=== PATIENT | male | born 1950 | race Caucasian/White ===

== ENCOUNTER 2023-05-13 22:09 | Emergency (ER) | payer MEDICARE, OTHER, SELFPAY ==
[2023-05-13 22:43] VITALS: BMI 26.6
[2023-05-13 22:47] VITALS: BP 124/72
--- NOTE | 2023-05-13 23:00 | ED.GENMED ---
History of Present Illness
<KIMBERLY Gaines - Last Filed: 05/14/23 04:26>
General
Chief Complaint: Swelling
Source: patient
Exam Limitations: none
Time Seen by Provider: 05/13/23 23:00
Nursing documentation reviewed up to this point in time: agreed with
Travel History
Have you had any contact with someone who has COVID-19?: No
Do you have any symptoms of coronavirus? Fever > 100 degrees, chills, cough, shortness of breath, sore throat, loss of taste or smell, muscle aches, or headache?: No
History of Present Illness
History of Present Illness:
This is a 72 YOM with PMHx of cholangiocarcinoma with liver and lung mets, HLD, and DVT in Mar 2023 presenting with fever and R leg edema. Pt started with R lower leg edema, skin redness, and R calf that was 'hard' to the touch. He called his
oncologist when he began with fever later today. Pt mentioned TMax of 101.2F at home. Oncologist recommended ED eval. Pt did not take any antipyretics today. Pt denied QUINN, dizziness, ear/eye/nose/throat pain, diff swallowing, chest pain, SOB, cough,
N/V/D/C, MSK weakness, diff ambulation, sensory deficits. Pt denied any LE pain. PE significant for intact PMS in R and L lower extremities. Skin on R medial calf with mild erythema, otherwise W/D/I and skin tone normal for ethnicity. Lower legs
supple to palpation B/L. Intact ROM in LE B/L. Grade 2 pitting tibal and medial malleolus edema LLE. Grade 3 tibal and medial malleolus pitting edema RLE. Basilar crackles heard B/L on lung auscultation.
Past History
<KIMBERLY Gaines - Last Filed: 05/14/23 04:26>
Past History
ED Past Medical History: Hypercholesterolemia
ED Past Surgical History: Orthopedic
Social History
Tobacco: Non-smoker
Alcohol: Occasional
Personal:
Living: with family
Employment: Employed (tools and parts attendant, partially retired)
Review of Systems
<KIMBERLY Gaines - Last Filed: 05/14/23 04:26>
Review of Systems
Allergies reviewed?: Yes
All Other Systems: ROS reviewed and negative except as documented in HPI and ROS
Constitutional: Reports fever and chills
EENT: Reports no symptoms
Respiratory: Reports no symptoms
Cardiac: Reports no symptoms
ABD/GI: Reports no symptoms
: Reports no symptoms
Musculoskeletal: Reports edema
Skin: Reports other (erythema)
Neurological: Reports no symptoms
Hematologic/Lymphatic: Reports no symptoms
Psychiatric: Reports no symptoms
Phy Exam
<KIMBERLY Gaines - Last Filed: 05/14/23 04:26>
General Physical Exam
General Presentation: well appearing
General age: appears stated age
General Skin: warm, dry and other (mild erythema on R medial calf)
General Habitus: normal
General Mental: alert
General Hydration: appears well hydrated
ENT Exam
ENT Exam: EOMI and neck supple
Eye Exam
Eye Exam: PERRL and EOMI
Cardiovascular Exam
Cardiovascular Exam: regular rate/rhythm
Pulmonary Exam
Pulmonary Exam: no respiratory distress and no cough
Breath Sounds: Crackles: left lower and right lower
Gastrointestinal Exam
Gastrointestinal Exam: normal bowel sounds, non tender, soft, no pulsatile mass, non distended and no masses
Neurological Exam
Neurological Exam: alert, oriented x3, no motor deficits, no sensory deficits, speech normal and normal gait
Musculoskeletal Exam
Musculoskeletal Exam: full ROM (LE B/L) and neuro vasc intact
Skin Exam
Skin Exam: erythema (R medial calf)
Psychiatric Exam
Psychiatric Exam: normal mood/affect
Scores
<KIMBERLY Gaines - Last Filed: 05/14/23 04:26>
Heart Failure Risk
Heart Failure Risk Score: Not Applicable
Course
<KIMBERLY Gaines - Last Filed: 05/14/23 04:26>
Orders/Labs/Results
Orders:
Orders
05/13/23 23:19
Vital Signs- Treatment ONCE
Frequency: Once
05/13/23 23:41
CMP [Comprehensive Metabolic Panel] Urgent
Complete Blood Count/With Diff Urgent
Lactic Acid Q4H
Comment: CANCEL 2nd LACTIC ACID IF 1st LACTIC ACID IS LESS THAN 2
Blood Culture Q30M
ROBIN Source: Blood/Venous
Specimen Description:
05/14/23 00:24
Blood Culture Q30M
ROBIN Source: Blood/Venous
Specimen Description:
05/14/23 00:33
Legs, Bilateral US [US Periph Venous LOWER Ext Edmund] Urgent
Comment:
Reason For Exam: bilateral leg swelling
05/14/23 00:35
CR Chest - 2 Views Urgent
Comment:
Reason For Exam: cough, fever
05/14/23 02:30
COVID-19 Antigen Urgent
Source: Nasal Swab
Influenza A+B Rapid Molecular Urgent
ROBIN Source: Nasal Swab
Specimen Description:
05/14/23 03:17
Cephalexin Monohydrate [Keflex] 500 mg PO NOW STA
Abnormal Lab Results
05/13/23 05/14/23
23:41 02:30
WBC 4.2 L 10^3/uL
(4.8-10.8)
RBC 2.74 L 10^6/uL
(4.70-6.10)
Hgb 9.7 L g/dL
(13.0-18.0)
Hct 27.4 L %
(39.0-52.0)
MCV 100.0 H fL
(80.0-94.0)
MCH 35.4 H pg
(27.0-31.0)
RDW 15.4 H %
(11.5-14.5)
Absolute Lymphs (auto) 0.2 L 10^3/uL
(1.2-3.4)
Neutrophils % 88.8 H %
(42.2-75.2)
Lymphocytes % 5.0 L %
(20.5-51.1)
Sodium 132 L mmol/L
(135-145)
Carbon Dioxide 21 L mmol/L
(22-30)
Glucose 126 H mg/dl
(70-99)
Total Protein 5.8 L g/dl
(6.3-8.2)
Albumin 3.3 L g/dl
(3.5-5.0)
SARS-CoV-2 Antigen Positive A
(Negative)
05/13/23 23:41
05/13/23 23:41
Vital Signs
Initial and Last Documented VS:
Initial Vital Signs
Temp Pulse Resp Pulse Ox
99.6 F 70 16 100
05/13/23 22:11 05/13/23 22:11 05/13/23 22:11 05/13/23 22:11
Last Documented Vital Signs
Temp Pulse Resp BP Pulse Ox
98.5 F 56 17 111/68 96
05/14/23 03:57 05/14/23 03:57 05/14/23 03:57 05/14/23 03:57 05/14/23 03:57
Bethanylt;Álvaro Eckert, DO - Last Filed: 05/14/23 03:53>
Orders/Labs/Results
Orders:
Orders
05/13/23 23:19
Vital Signs- Treatment ONCE
Frequency: Once
05/13/23 23:41
CMP [Comprehensive Metabolic Panel] Urgent
Complete Blood Count/With Diff Urgent
Lactic Acid Q4H
Comment: CANCEL 2nd LACTIC ACID IF 1st LACTIC ACID IS LESS THAN 2
Blood Culture Q30M
ROBIN Source: Blood/Venous
Specimen Description:
05/14/23 00:24
Blood Culture Q30M
ROBIN Source: Blood/Venous
Specimen Description:
05/14/23 00:33
Legs, Bilateral US [US Periph Venous LOWER Ext Edmund] Urgent
Comment:
Reason For Exam: bilateral leg swelling
05/14/23 00:35
CR Chest - 2 Views Urgent
Comment:
Reason For Exam: cough, fever
05/14/23 02:30
COVID-19 Antigen Urgent
Source: Nasal Swab
Influenza A+B Rapid Molecular Urgent
ROBIN Source: Nasal Swab
Specimen Description:
05/14/23 03:17
Cephalexin Monohydrate [Keflex] 500 mg PO NOW STA
Abnormal Lab Results
05/13/23 05/14/23
23:41 02:30
WBC 4.2 L 10^3/uL
(4.8-10.8)
RBC 2.74 L 10^6/uL
(4.70-6.10)
Hgb 9.7 L g/dL
(13.0-18.0)
Hct 27.4 L %
(39.0-52.0)
MCV 100.0 H fL
(80.0-94.0)
MCH 35.4 H pg
(27.0-31.0)
RDW 15.4 H %
(11.5-14.5)
Absolute Lymphs (auto) 0.2 L 10^3/uL
(1.2-3.4)
Neutrophils % 88.8 H %
(42.2-75.2)
Lymphocytes % 5.0 L %
(20.5-51.1)
Sodium 132 L mmol/L
(135-145)
Carbon Dioxide 21 L mmol/L
(22-30)
Glucose 126 H mg/dl
(70-99)
Total Protein 5.8 L g/dl
(6.3-8.2)
Albumin 3.3 L g/dl
(3.5-5.0)
SARS-CoV-2 Antigen Positive A
(Negative)
05/13/23 23:41
05/13/23 23:41
Vital Signs
Initial and Last Documented VS:
Initial Vital Signs
Temp Pulse Resp Pulse Ox
99.6 F 70 16 100
05/13/23 22:11 05/13/23 22:11 05/13/23 22:11 05/13/23 22:11
Last Documented Vital Signs
Temp Pulse Resp BP Pulse Ox
98.5 F 56 17 111/68 96
05/14/23 03:57 05/14/23 03:57 05/14/23 03:57 05/14/23 03:57 05/14/23 03:57
<KIMBERLY Gaines - Last Filed: 05/14/23 04:26>
MDM/Problems Addressed
Differential Diagnosis Includes:
Cellulitis, DVT, sepsis
PNA, COVID, Influenza A/B
MDM/Problems Addressed:
72 YOM presenting with RLE edema, erythema
Chronic conditions affecting care:
Cholangiocarcinoma
Acute Exacerbation and/or Progression of Chronic Illness:
Cholangiocarcinoma
<KIMBERLY Gaines - Last Filed: 05/14/23 04:26>
*Pulse Oximetry
Patient hypoxic: no
*Critical Care Note
Total Time (30-74mins, 75-104mins- exclusive of procedures): Not Applicable
<Álvaro Eckert DO - Last Filed: 05/14/23 03:53>
*Radiology
Radiology exam reviewed: preliminary read by ED provider (Chest x-ray no acute findings) and radiology read reviewed (Ultrasound shows bilateral nonocclusive DVTs in lower extremities, improved from prior)
*EKG
Interpreted by ED Provider?: NA
*[employer] Interpretation
Rate: [employer]- N/A
*Critical Care Note
Total Time (30-74mins, 75-104mins- exclusive of procedures): Not Applicable
<Álvaro Eckert DO - Last Filed: 05/14/23 03:53>
Patient Management
Social determinants of health affecting care: Strong social support
Escalation/DeEscalation of care consider admission/obs:
Admit not indicated
ED Attending Note
<KIMBERLY Gaines - Last Filed: 05/14/23 04:26>
-
Portions of this chart may have been created with voice recognition software.� Occasional wrong word or��sound alike� substitutions may have occurred due to the inherent limitations of voice recognition software.
<Álvaro Eckert DO - Last Filed: 05/14/23 03:53>
ED Attending Note
Patient seen and examined by attending physician: Yes
I performed the substantive portion of visit, reviewed & personally made and approve the management plan that is documented in note by myself or CORKY.: Yes
I performed a history and physical exam of patient and discussed management with resident, I reviewed resident's note and agree with documented findings and plan of care.: Yes
ED Attending Note:
I have reviewed and agree with history and treatment plan by Shazia Rao. My exam revealed 72-year-old male with mild erythema bilateral lower extremities, lungs clear, temperature 99.6. Chronic edema and DVT improved from prior ultrasound.
Chest x-ray no acute finding with COVID likely responsible for his fever and chills. Stable for discharge.
Discharge Plan
Departure
Patient Disposition: Home (Routine Discharge)
Date of Disposition: 05/14/23
Time of Disposition: 03:23
Patient with high blood pressure during this ER visit?: Yes
Condition: Good
Covid-19: Confirmed COVID-19
Discharge Problem:
COVID-19, Cellulitis of right lower extremity, DVT (deep venous thrombosis)
Instructions: Deep vein thrombosis (blood clot in the legs), COVID-19 (DC), Cellulitis (Skin Infection), Adult ED
Prescriptions:
New
cephalexin 500 mg capsule
500 mg PO BID 7 Days Qty: 14 0RF
No Action
atorvastatin [Lipitor] 40 mg Tablet
40 mg PO HS
lisinopril 20 mg Tablet
20 mg PO DAILY Qty: 90 0RF
Sutab 1.479-0.188- 0.225 gram Tablet
0 tab PO PER PKG DIR
Eliquis 5 mg tablet
5 mg PO BID Qty: 60 0RF
Rx Instructions:
Take 10mg twice a day for one week, then take 5mg twice a day after the first week.
Referrals:
Álvaro Sandoval MD [Family Provider] -
Interventions
Interventions:
*Risk Screen - Suicide Last Done: 05/13/23 22:11
*General Assessment Last Done: 05/13/23 22:11
*Neglect/Abuse Screening Last Done: 05/13/23 22:11
ED- Fall Risk Assessment Last Done: 05/14/23 03:57
*ED COVID-19 Vaccine History Last Done: 05/13/23 22:43
*Nursing Disposition Last Done: 05/14/23 03:57
ED- Cardiac Assessment Last Done: 05/13/23 23:32
ED- Pulmonary Assessment Last Done: 05/13/23 23:32
ED-Skin Assessment Last Done: 05/13/23 23:30
Discharge Date and Time
Discharge Date/Time: 05/14/23 03:58
[2023-05-13 23:53] LABS: % Basophils 0.2 % (0-2); Nucleated Red Blood Cells % 0 % (-); Red Blood Cell Count 2.74 10^6/uL (4.70-6.10)
[2023-05-13 23:58] LABS: % Immature Granulocytes 0.5 % (0-0.5); % Monocytes 4.5 % (1.7-9.3); % Neutrophils 88.8 % (42.2-75.2); Absolute Lymphocytes 0.2 10^3/uL (1.2-3.4); Absolute Monocytes 0.2 10^3/uL (0.1-0.6); Absolute Neutrophils 3.7 10^3/uL (1.4-6.5); Hematocrit 27.4 % (39.0-52.0); Hemoglobin 9.7 g/dL (13.0-18.0); Mean Corp Hgb Conc. 35.4 g/dL (33.0-37.0); Mean Corpuscular Hgb 35.4 pg (27.0-31.0); Mean Platelet Volume 9.4 fL (7.4-10.4); Platelet Count 224 10^3/uL (130-400); Red Cell Dist. Width 15.4 % (11.5-14.5); White Blood Cell Count 4.2 10^3/uL (4.8-10.8)
[2023-05-14 00:05] LABS: Lactic Acid 1.1 mmol/L (0.7-2.0)
[2023-05-14 00:07] LABS: ALT (SGPT) 41 U/L (0-50); AST (SGOT) 47 U/L (17-59); Albumin 3.3 g/dl (3.5-5.0); Alkaline Phosphatase 119 U/L (38-126); Blood Urea Nitrogen 19 mg/dl (9-20); Calcium 8.6 mg/dl (8.4-10.2); Carbon Dioxide 21 mmol/L (22-30); Chloride 103 mmol/L (98-107); Estimated Creatinine Clearance 76 ml/min; Glucose 126 mg/dl (70-99); Potassium 4.2 mmol/L (3.5-5.1); Sodium 132 mmol/L (135-145); Total Bilirubin 0.9 mg/dl (0.2-1.3); Total Protein 5.8 g/dl (6.3-8.2); eGFR > 60.00
[2023-05-14 00:21] VITALS: BP 108/59
[2023-05-14 03:03] LABS: COVID-19 Antigen Positive (Negative)
[2023-05-14] MEDS: KEFLEX 500 MG PO (03:55)
[2023-05-14 03:57] VITALS: BP 111/68
== END 2023-05-14 03:58 | disposition home or self-care (01) ==
LOC: EMR 22:09
PROVIDERS: EMERGENCY PHYSICIAN Emergency Medicine; FAMILY PHYSICIAN Family Medicine
DX: U07.1 COVID-19 (principal); L03.115 Cellulitis of right lower limb; R50.9 Fever, unspecified; I82.4Z3 Acute embolism and thrombosis of unspecified deep veins of distal lower extremity, bilateral; R60.0 Localized edema; Z11.52 Encounter for screening for COVID-19; C22.1 Intrahepatic bile duct carcinoma; C78.00 Secondary malignant neoplasm of unspecified lung; C78.7 Secondary malignant neoplasm of liver and intrahepatic bile duct; E78.00 Pure hypercholesterolemia, unspecified; Z86.718 Personal history of other venous thrombosis and embolism; Z91.013 Allergy to seafood
CPT/HCPCS: 99284; 71046; 80053; 83605; 85025; 87040; 87502; 87811; 93970

== ENCOUNTER 2023-11-23 18:58 | Inpatient (IN) | payer MEDICARE, OTHER, SELFPAY ==
[2023-11-23 16:16] VITALS: BP 150/77
[2023-11-23 16:45] LABS: % Basophils 0.4 % (0-2); % Eosinophils 3.2 % (0-6); % Immature Granulocytes 0.3 % (0-0.5); % Lymphocytes 14.8 % (20.5-51.1); % Monocytes 7.3 % (1.7-9.3); Absolute Eosinophils 0.3 10^3/uL (0-0.7); Absolute Lymphocytes 1.4 10^3/uL (1.2-3.4); Absolute Monocytes 0.7 10^3/uL (0.1-0.6); Hematocrit 34.2 % (39.0-52.0); Hemoglobin 12.2 g/dL (13.0-18.0); Mean Corp Hgb Conc. 35.7 g/dL (33.0-37.0); Mean Corpuscular Hgb 31.9 pg (27.0-31.0); Mean Corpuscular Volume 89.5 fL (80.0-94.0); Nucleated Red Blood Cells % 0 % (-); Platelet Count 193 10^3/uL (130-400); Red Blood Cell Count 3.82 10^6/uL (4.70-6.10); Red Cell Dist. Width 13.2 % (11.5-14.5); White Blood Cell Count 9.4 10^3/uL (4.8-10.8)
[2023-11-23 17:25] LABS: ALT (SGPT) 33 U/L (0-50); AST (SGOT) 30 U/L (17-59); Albumin 4.1 g/dl (3.5-5.0); Alkaline Phosphatase 152 U/L (38-126); Blood Urea Nitrogen 41 mg/dl (9-20); Calcium 9.5 mg/dl (8.4-10.2); Carbon Dioxide 15 mmol/L (22-30); Chloride 112 mmol/L (98-107); Glucose 109 mg/dl (70-99); Potassium 5.6 mmol/L (3.5-5.1); Sodium 136 mmol/L (135-145); Total Bilirubin 0.8 mg/dl (0.2-1.3); Total Protein 7.1 g/dl (6.3-8.2); eGFR 34.16
[2023-11-23 17:32] VITALS: BMI 24.1
[2023-11-23] MEDS: LOKELMA 10 GRAM PO (17:42)
[2023-11-23] MEDS: NSS 1000 IV (17:42)
[2023-11-23 17:49] VITALS: BP 139/68
[2023-11-23 18:00] VITALS: BP 163/84
--- NOTE | 2023-11-23 18:07 | W.PN.UPDATE ---
Update Note
Progress Note Update
This is an addendum to H&P written by ELTON Houston
I saw and examined the patient.
The RESIDENTIAL TREATMENT COUNSELOR's note was reviewed and I agree with the note.
Comment:
Mr. Benton Yee is a 73 yo man with hx HLD, cholangiocarcinoma with liver and lung mets, DVT sent to the ER for outpatient labs showing hyperkalemia. Unclear etiology as patient doesn't report vomiting/diarrhea or poor appetite. His lisinopril
was stopped Tuesday and there has been some improvement in renal function.
Triage VS: T 97.8, P 61, BP 150/77, RR 18, SpO2 99% RA
LABS: WBC 9.4, Hg 12.2, PLT 193, Na 136, K+ 5.6, Cl 112, CO2 15, BUN 41, Cr 2.0, Glucose 109, T. Bili 0.8, AST 30, ALT 33, Alk Phos 152
EKG: sinus bradycardia @ 50
He was given 1L bolus, Lokelma and sodium bicarb in the ER.
On exam patient is awake, conversant, in no distress. Lungs with faint wheezing. Abdomen benign, no LE swelling.
Acute Kidney Injury
Hyperkalemia
-received fluids and lokelma in ER
-case discussed with renal in ER
-continue sodium bicarb
-F/U urine studies and renal US
-continue Lokelma
-hold Lisinopril
-formal renal consult
Hx DVT
-ORAL AND MAXILLOFACIAL SURGEON Eliquis
Hx Cholangiocarcinoma with Liver and Lung Mets
-stopped chemo 4 months ago, 1 x/ month immunotherapy; scans show progression of nodule in liver with plans to restart chemo next week
HLD
-ORAL AND MAXILLOFACIAL SURGEON statin
GERD
-ORAL AND MAXILLOFACIAL SURGEON PPI
[2023-11-23] MEDS: SODIUM BICARBONATE 1150 MEQ IV (18:08)
--- NOTE | 2023-11-23 18:41 | HPS.HSE ---
Family Physician
-
Family Physician: Kyle Sandoval
Chief Complaint
-
Abnormal Labs
History of Present Illness
Pt is 73 yo M with PMH metastatic cholangiocarcinoma with cholecystectomy and partial resection of liver, Hypertension, and DVT presents to ED following referral from oncologist for potassium 6.4 on outpatient blood work today. Pt saw his oncologist
at [place] on Tuesday who was concerned for dehydration based on blood wor. At that time patient received a liter of IVFs and was told to stop his lisinopril. Repeat blood work completed this morning (11 AM) revealed potassium 6.0 and he was urged to
present to the ED for additional evaluation and treatment. He states he is recovering from a cold and besides a residual cough feels fine. He admits to taking benzonatate for cough. He reports his appetite is good, and he denies nausea/vomiting or
diarrhea. He denies any changes in urine output, hesitancy or frequency.
Medical History
Past Medical History
Past Medical History: Reports Other
Additional Past Medical History:
Metastatic Cholangiocarcinoma (Liver and Lung)
Essential Hypertension
Hyperlipidemia
DVT
Past Surgical History: Reports Other
Additional Past Surgical History:
Cholecystectomy and Liver Resection
Right Total Knee Replacement
Social History
Tobacco: Non-smoker
Alcohol: Occasional (Once a month)
Family History
Family History: Not pertinent
Allergies / Home Medications
Allergies reflects when Allergies were last updated in [facility].
Home Medications with original date entered in [facility]
Allergy/Medication List:
Allergies
Allergy/AdvReac Type Severity Reaction Status Date / Time
scallops Allergy hives,shortness Verified 04/01/23 19:28
of
breath,swollen
eyes
Home Medications
atorvastatin 40 mg tablet (Lipitor) 40 mg PO HS High cholesterol 12/19/21
apixaban 5 mg tablet (Eliquis) 5 mg PO BID #60 tabs 04/01/23
benzonatate 200 mg capsule 200 mg PO QIDPRN PRN cough 11/23/23
omeprazole 20 mg capsule,delayed release 20 mg PO DAILY 11/23/23
Review of Systems
-
A 12 point ROS was completed and negative except as noted: Yes
Constitutional: Denies Fever or Chills
Respiratory: Reports Cough; Denies Trouble Breathing
Cardiac: Denies Chest Pain or Palpitations
Abdomen/GI: Denies Abdominal Pain, Nausea, Vomiting, Diarrhea or Anorexia
Physical Exam
Vital Signs
Vital Signs
Temp Pulse Resp BP Pulse Ox
97.8 F 61 20 139/68 100
11/23/23 16:16 11/23/23 16:16 11/23/23 17:49 11/23/23 17:49 11/23/23 17:49
Physical Exam
General: Comfortable and Conversant
HEENT: Anicteric and Moist mucous membranes
Respiratory: Wheezes (Diffuse) and Non Labored Respirations
Cardiac: S1/S2, Regular Rhythm and Bradycardia (Slightly)
GI: Soft and Non Tender
Rectal: Deferred by Provider
Musculoskeletal: No Clubbing, No Cyanosis and No Edema
Skin: Warm and Dry
Neuro: Awake, Alert, Oriented and Nonfocal/grossly intact
Psych: Calm
Laboratory Results
-
11/23/23 16:33
11/23/23 16:33
Laboratory Results
Total Bilirubin 0.8 mg/dl (0.2-1.3) 11/23/23 16:33
AST 30 U/L (17-59) 11/23/23 16:33
ALT 33 U/L (0-50) 11/23/23 16:33
Alkaline Phosphatase 152 U/L (38-126) H 11/23/23 16:33
Data Reviewed
-
Lab Data: Labs Reviewed by me
Impression/Plan
-
Acute Kidney Injury with Hyperkalemia and Metabolic Acidosis
-Consult Nephrology
-Check Renal/Bladder US
-Check Urine Sodium and Urine Creatinine
-Continue IVFs with Sodium Bicarb
-Continue Lokelma
-Recheck potassium later this evening
Cough
-Check COVID
-Add Robitussin DM
-Add Albuterol Neb PRN
Metastatic Cholangiocarcinoma
-Patient has been off chemotherapy for 4 months, and off immunotherapy for 1 month
-Recent scan showed progression and is to resume chemotherapy next week
Essential Hypertension
-Lisinopril stopped on Nov 20
Hyperlipidemia
-Continue Atorvastatin
Hx DVT
-Continue Eliquis
Code Status: Full Code
[2023-11-23 19:00] VITALS: BP 128/76
[2023-11-23 19:27] LABS: COVID-19 Antigen Negative (Negative)
[2023-11-23 20:15] VITALS: BP 149/77; BMI 25.5
[2023-11-23 21:01] LABS: Urine Potassium 13.4 mmol/L (30-90); Urine Sodium 44 mmol/L (30-90)
[2023-11-23] MEDS: LIPITOR 40 MG PO (21:17)
[2023-11-23] MEDS: ELIQUIS 5 MG PO (21:18)
[2023-11-23] MEDS: ROBITUSSIN DM 10 ML PO (21:18)
--- NOTE | 2023-11-23 22:30 | PTCARENOTE ---
As per patient and from Dr's H&P, to recheck his 'K level later in the evening 'but never got ordered. QUINN Soria made aware. New order received for lab draw to check potassium.
[2023-11-23 23:30] VITALS: BP 134/68
[2023-11-23 23:30] LABS: Potassium 4.9 mmol/L (3.5-5.1)
[2023-11-24 03:36] VITALS: BP 118/69
[2023-11-24] MEDS: SODIUM BICARBONATE 1150 MEQ IV ×2 (04:01→16:08)
--- NOTE | 2023-11-24 04:49 | PTCARENOTE ---
Repeat k last night 4.9 from 5.6. Patient is scheduled to get Lokelma this AM at 0600. Estella BALL made aware. As per advise, Will wait to administer the med after get morning BMP result.
[2023-11-24 05:38] VITALS: BMI 25.2
[2023-11-24 06:09] LABS: Blood Urea Nitrogen 39 mg/dl (9-20); Calcium 8.8 mg/dl (8.4-10.2); Carbon Dioxide 22 mmol/L (22-30); Chloride 112 mmol/L (98-107); Estimated Creatinine Clearance 36 ml/min; Glucose 101 mg/dl (70-99); Potassium 5.4 mmol/L (3.5-5.1); Sodium 138 mmol/L (135-145); eGFR 44.65
[2023-11-24 06:19] LABS: Hematocrit 30.6 % (39.0-52.0); Hemoglobin 11.1 g/dL (13.0-18.0); Mean Corp Hgb Conc. 36.3 g/dL (33.0-37.0); Mean Corpuscular Hgb 32.6 pg (27.0-31.0); Mean Platelet Volume 9.6 fL (7.4-10.4); Platelet Count 166 10^3/uL (130-400); Red Cell Dist. Width 12.9 % (11.5-14.5); White Blood Cell Count 9.5 10^3/uL (4.8-10.8)
[2023-11-24] MEDS: LOKELMA 10 GRAM PO ×3 (06:22→17:40)
[2023-11-24 07:05] VITALS: BP 123/63
[2023-11-24] MEDS: ELIQUIS 5 MG PO ×2 (07:55→20:41)
[2023-11-24] MEDS: PROTONIX 40 MG PO (07:55)
--- NOTE | 2023-11-24 10:57 | W.PN.HOSP.TC ---
Today's Communication/Plan
-
see plan
Assessment / Plan
Assessment / Plan
Mr. Benton Yee is a 73 yo man with hx HLD, cholangiocarcinoma with liver and lung mets, DVT sent to the ER for outpatient labs showing hyperkalemia. Unclear etiology as patient doesn't report vomiting/diarrhea or poor appetite. His lisinopril
was stopped Tuesday and there has been some improvement in renal function.
Renal US
IMPRESSION: No evidence of renal collecting system dilatation or mass bilaterally.
Confirmation of bilateral ureteral jets.
Acute Kidney Injury
Hyperkalemia
-mild improvement overnight
-receiving Lokelma
-renal US without hydro
FeNa 2.6%
-F/U renal consult
URI
-covid negative
-improving
Hx DVT
-PIG FARMER Eliquis
Hx Cholangiocarcinoma with Liver and Lung Mets
-stopped chemo 4 months ago, 1 x/ month immunotherapy; scans show progression of nodule in liver with plans to restart chemo next week
HLD
-PIG FARMER statin
GERD
-PIG FARMER PPI
DVT PPx Eliquis
FULL CODE
Anticipated Discharge: 24 - 48 hours
Subjective/Interval History
-
Date of Service: November 24, 2023
remains congested from cold but improving
no lightheadedness or dizziness
eating and drinking okay
Objective Data
-
Labs:
Laboratory Results
11/23/23 11/24/23
23:12 05:10
WBC 9.5
Hgb 11.1 L
Hct 30.6 L
Plt Count 166
Sodium 138
Potassium 4.9 5.4 H
Chloride 112 H
Carbon Dioxide 22
BUN 39 H
Creatinine 1.6 H
Glucose 101 H
Calcium 8.8
Vital Signs:
Vital Signs
Temp Pulse Resp BP Pulse Ox
97.9 F 48 17 123/63 96
11/24/23 07:05 11/24/23 07:05 11/24/23 07:05 11/24/23 07:05 11/24/23 08:00
I&O
11/23/23 11/24/23 11/25/23
06:59 06:59 06:59
Intake Total 2159
Balance 2159
Review of Systems
-
History Source: Patient
All other systems: Reviewed and negative
Physical Exam
-
General: No Apparent Distress
HEENT: PERRLA
Respiratory: Clear to Auscultation; Negative Wheezes
Cardiac: Regular Rhythm and S1/S2
GI: Soft and Nontender
Musculoskeletal: No Edema
Skin: Warm and Dry; Negative Rash
Neuro: AO x 3
Psych: Calm
Data Reviewed
-
Diagnostic Radiology: Report Reviewed by me
Labs: Labs Reviewed by me
[2023-11-24 11:00] VITALS: BP 124/73
--- NOTE | 2023-11-24 12:49 | W.CON.NEPH ---
Consultation
-
Date/Time Consultation Requested: 11/24/2023 7:30 AM
Date/Time Consultation Performed: 11/24/2023 1:00 PM
Requesting Provider: Dr. Rossi
Performing Provider: Dr. Arnold
Reason for Consultation: Acute kidney injury/ hyperkalemia/metabolic acidosis (npn anion gap)
Medical History
-
Chief Complaint: Acute kidney injury hyperkalemia
History of Present Illness:
The patient is a 73-year-old male with a known history of hypertension maintained on lisinopril. 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 The patient has a
history of cholangiocarcinoma and has previously undergone partial liver resection and cholecystectomy and had undergone chemotherapy until July of this past year. He had then been maintained on immunotherapy in July up until last month with
Durvalumab. He presented to the hospital for acute renal failure metabolic acidosis and hyperkalemia at the urging of his oncologist who had recently obtained routine lab work. His ramipril was discontinued earlier this week by his oncologist when
he noted his acute renal failure and hyperkalemia. On presentation to the hospital his potassium was 5.6 and his creatinine was 2. A review of past medical records with the patient provided from October 24, 2023 was a potassium of 4.9 and a creatinine
of 1.34. On September 26, 2023 his creatinine was 1.0 I note his creatinine was 0.8 in June 2023 and 0.97 in August 2023. He denies complaints.
Past Medical History
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
Social History
Tobacco: Non-Smoker
Alcohol: Occasional
Family History
No chronic kidney disease
Allergies / Home Medications
Allergy/AdvReac Type Severity Reaction Status Date / Time
scallops Allergy hives,shortness Verified 04/01/23 19:28
of
breath,swollen
eyes
�Medication �Instructions �Recorded �Confirmed �Type
atorvastatin 40 mg tablet (Lipitor) 40 mg PO HS High cholesterol 12/19/21 11/23/23 History
apixaban 5 mg tablet (Eliquis) 5 mg PO BID #60 tabs 04/01/23 11/23/23 Rx
benzonatate 200 mg capsule 200 mg PO QIDPRN PRN cough 11/23/23 11/23/23 History
lisinopril 20 mg tablet 20 mg PO DAILY 11/23/23 11/23/23 History
omeprazole 20 mg capsule,delayed 20 mg PO DAILY 11/23/23 11/23/23 History
release
Review of Systems
-
History Source: Patient
All other systems: Negative unless noted
Respiratory: Cough
Physical Exam
Vital Signs
Vital Signs
Temp Pulse Resp BP Pulse Ox
97.6 F 52 16 124/73 96
11/24/23 11:00 11/24/23 11:00 11/24/23 11:00 11/24/23 11:00 11/24/23 11:00
Lab Results
11/24/23 05:10
11/24/23 05:10
WBC 9.5 10^3/uL (4.8-10.8) 11/24/23 05:10
RBC 3.40 10^6/uL (4.70-6.10) L 11/24/23 05:10
Hgb 11.1 g/dL (13.0-18.0) L 11/24/23 05:10
Hct 30.6 % (39.0-52.0) L 11/24/23 05:10
Plt Count 166 10^3/uL (130-400) 11/24/23 05:10
Sodium 138 mmol/L (135-145) 11/24/23 05:10
Potassium 5.4 mmol/L (3.5-5.1) H 11/24/23 05:10
Chloride 112 mmol/L (98-107) H 11/24/23 05:10
Carbon Dioxide 22 mmol/L (22-30) 11/24/23 05:10
BUN 39 mg/dl (9-20) H 11/24/23 05:10
Creatinine 1.6 mg/dL (0.7-1.3) H 11/24/23 05:10
eGFR 44.65 11/24/23 05:10
Glucose 101 mg/dl (70-99) H 11/24/23 05:10
Calcium 8.8 mg/dl (8.4-10.2) 11/24/23 05:10
Albumin 4.1 g/dl (3.5-5.0) 11/23/23 16:33
Physical Exam
General: AOx3, Nontoxic , NAD
HEENT: PERRL, EOMI, Anicteric, Conjunctivae Clear, Ear/Nose Intact, Hearing Normal, Oropharynx Clear/Moist, Dentition Intact, Facial Symmetry, Neck Supple, Neck: Trachea Midline, No JVD and No Thyromegaly, no Bruits
Respiratory: Wheezes bilaterally with normal lung excursion
Cardiac: S1/S2 and Regular Rate/Rhythm
Breast: Deferred by me
Abdomen: Soft, Nontender, Nondistended, Normal Bowel Sounds and No Hepatosplenomegaly
Rectal: Deferred by Provider
Genito-urinary: No Costovertebral Tenderness
Extremities: No Clubbing, No Cyanosis and No Edema
Skin: No Rash or open lesions
Neuro: Nonfocal/Grossly Intact, CN II-XII (Intact) and Strength (Musculoskeletal exam 5 out of 5 both upper and lower extremities)
Hematologic/Lymphatic: No Cervical Lymphadenopathy, No Submandibular Lymphadenopathy and No Supraclavicular Lymphadenopathy
Psych: Mood/afflect pleasant, Insight/judgement good and Appropriate
Vascular: plus 2 pedal and radial pulses
Data Reviewed
-
Ultrasound: Report Reviewed by me (Renal ultrasound report reviewed no evidence of hydronephrosis or abnormalities anatomic)
Medical Tests (Nuc Med, Echo etc): Other (EKG personally reviewed noted sinus bradycardic rhythm with slightly hyperacute T waves)
Labs: Labs Reviewed by me (BMP CBC urine sodium and urine creatinine)
Old Records: Reviewed (Reviewed old creatinine level of 0.8 and potassium level 4.2 from May 13, 2023 EMR)
Assessment/Plan
-
Impression:
Acute kidney injury
Hyperkalemia
Nongap metabolic acidosis
History of metastatic cholangiocarcinoma
History of hypertension
History of DVT on chronic Eliquis
Plan:
-check UA
-Renal ultrasound was normal
-Fractional secretion of sodium not consistent with prerenal stimulus
-MAME inhibitor was discontinued earlier this week
-Maintain alkaline IV fluids in setting of acidosis and hyperkalemia
-Maintain Lokelma for hyperkalemia
-Check urine eosinophils to assess for possible interstitial nephritis mediated from checkpoint inhibitor last given 4 weeks prior (doubt)
-Of note the patient did have a CAT scan with IV contrast of the chest on November 16, 2023: I am concerned that he could have contrast-induced kidney injury especially as the patient had been maintained on MAME inhibitor's
[2023-11-24 15:05] VITALS: BP 149/79
[2023-11-24 15:18] LABS: Urine Albumin Negative (Neg - Trace); Urine Bilirubin Negative (Negative); Urine Color Yellow; Urine Glucose Negative (Negative); Urine Ketone Negative (Negative); Urine Leukocyte Negative (Negative); Urine Nitrite Negative (Negative); Urine Occult Blood Trace (Negative); Urine Specific Gravity 1.005 (<1.030); Urine Urobilinogen Negative (Neg - 1+)
[2023-11-24 15:25] LABS: Urine Red Blood Cell 0-2 /HPF (0-2); Urine White Cell 0-2 /HPF (0-5)
[2023-11-24 15:29] LABS: Urine Character Clear (Clear)
--- NOTE | 2023-11-24 15:38 | CM ---
Alert awake oriented patient who lives with his Mariaelena who lives in a 2 story home with 1 step to enter and 15 2steps to bed and bathroom. He is independent in driving and in all activities of daily living.He has no adaptive devices.He was
offered VN he declined need.
Salters VN hx / No SNF history
Pharmacy [facility]
PCP DR Kyle Sandoval
PLAN Home Declined VN
[2023-11-24 19:30] VITALS: BP 141/75
[2023-11-24] MEDS: LIPITOR 40 MG PO (20:41)
[2023-11-24] MEDS: TESSALON PERLES 200 MG PO (20:48)
[2023-11-24 23:17] VITALS: BP 138/77
[2023-11-25] MEDS: SODIUM BICARBONATE 1150 MEQ IV (03:10)
[2023-11-25 03:23] VITALS: BP 138/65
[2023-11-25] MEDS: LOKELMA 10 GRAM PO (05:38)
[2023-11-25 06:00] VITALS: BMI 25.6
[2023-11-25 06:18] LABS: Blood Urea Nitrogen 33 mg/dl (9-20); Calcium 8.4 mg/dl (8.4-10.2); Carbon Dioxide 31 mmol/L (22-30); Chloride 104 mmol/L (98-107); Estimated Creatinine Clearance 36 ml/min; Glucose 103 mg/dl (70-99); Potassium 3.8 mmol/L (3.5-5.1); Sodium 138 mmol/L (135-145); eGFR 44.65
[2023-11-25 07:45] VITALS: BP 125/63
[2023-11-25] MEDS: ELIQUIS 5 MG PO (07:59)
[2023-11-25] MEDS: PROTONIX 40 MG PO (08:00)
--- NOTE | 2023-11-25 11:04 | W.PN.HOSP.TC ---
Today's Communication/Plan
-
possible DC today
Assessment / Plan
Assessment / Plan
Mr. Benton Yee is a 73 yo man with hx HLD, cholangiocarcinoma with liver and lung mets, DVT sent to the ER for outpatient labs showing hyperkalemia. Unclear etiology as patient doesn't report vomiting/diarrhea or poor appetite. His lisinopril
was stopped Tuesday and there has been some improvement in renal function.
Renal US
IMPRESSION: No evidence of renal collecting system dilatation or mass bilaterally.
Confirmation of bilateral ureteral jets.
Acute Kidney Injury
Hyperkalemia
-renal US without hydro
FeNa 2.6%
-CO2 up and K 3.8 this AM --> stop sodium bicarb and Lokelma
-appreciate renal
-possible DC today with close follow up labs - F/U renal recs
URI
-covid negative
-improving
Hx DVT
-TRADING ANALYST Eliquis
Hx Cholangiocarcinoma with Liver and Lung Mets
-stopped chemo 4 months ago, 1 x/ month immunotherapy; scans show progression of nodule in liver with plans to restart chemo next week
HLD
-TRADING ANALYST statin
GERD
-TRADING ANALYST PPI
DVT PPx Eliquis
FULL CODE
Anticipated Discharge: Within 24 hours
Subjective/Interval History
-
Date of Service: November 25, 2023
feeling well
no new complaints
Objective Data
-
Labs:
Laboratory Results
11/25/23
05:35
Sodium 138
Potassium 3.8 D
Chloride 104
Carbon Dioxide 31 H
BUN 33 H
Creatinine 1.6 H
Glucose 103 H
Calcium 8.4
Vital Signs:
Vital Signs
Temp Pulse Resp BP Pulse Ox
97.4 F 60 16 125/63 96
11/25/23 07:45 11/25/23 07:45 11/25/23 07:45 11/25/23 07:45 11/25/23 07:45
I&O
11/24/23 11/25/23 11/26/23
06:59 06:59 06:59
Intake Total 2160 / 2160 1200 / 1200
Balance 2160 / 2160 1200 / 1200
Review of Systems
-
History Source: Patient
All other systems: Reviewed and negative
Physical Exam
-
General: No Apparent Distress
HEENT: PERRLA
Respiratory: Clear to Auscultation; Negative Wheezes
Cardiac: Regular Rhythm and S1/S2
GI: Soft and Nontender
Musculoskeletal: No Edema
Skin: Warm and Dry; Negative Rash
Neuro: AO x 3
Psych: Calm
Data Reviewed
-
Diagnostic Radiology: Report Reviewed by me
Labs: Labs Reviewed by me
[2023-11-25 12:02] VITALS: BP 143/75
[2023-11-25] MEDS: FLUSH (NSS) 1 FLUSH IV (12:30)
--- NOTE | 2023-11-25 12:35 | W.DS.TRANS ---
DC Summary - [employer]
-
Discharge Instructions:
Discharge Diagnosis/Procedures hyperkalemia, acute kidney injury
Diet Regular
Activity As tolerated
Driving Restrictions As prior to admission
Blood Work BMP early next week (to monitor kidney function
and potassium)
Instructions:
Stand-Alone Forms:
Changes to Home Medications: Yes
Discharge Medications:
DC Medications w/original date entered in [employer]
atorvastatin 40 mg tablet (Lipitor) 40 mg PO HS High cholesterol 12/19/21
apixaban 5 mg tablet (Eliquis) 5 mg PO BID #60 tabs 04/01/23
benzonatate 200 mg capsule 200 mg PO QIDPRN PRN cough 11/23/23
omeprazole 20 mg capsule,delayed release 20 mg PO DAILY 11/23/23
Home Medication Changes
continue to hold lisinopril
Pending Results: No
--- NOTE | 2023-11-25 12:48 | W.PN.NEPH.PH ---
Today's Communication / Plan
-
cap IVF
Assessment/Plan
-
Impression:
Acute kidney injury
Hyperkalemia
Nongap metabolic acidosis
History of metastatic cholangiocarcinoma
History of hypertension
History of DVT on chronic Eliquis
Plan:
follow bmp
stay off ACEI
cap IVF
-
-
Date of Service: November 25, 2023
CC / HPI / ROS
-
Chief Complaint:
YESSENIA
History of Present Illness:
YESSENIA/Cr down to 1.6
K normal
acidosis resolved
Review of Systems:
no CP/SOB
Labs
-
Labs:
WBC 9.5 10^3/uL (4.8-10.8) 11/24/23 05:10
RBC 3.40 10^6/uL (4.70-6.10) L 11/24/23 05:10
Hgb 11.1 g/dL (13.0-18.0) L 11/24/23 05:10
Hct 30.6 % (39.0-52.0) L 11/24/23 05:10
Plt Count 166 10^3/uL (130-400) 11/24/23 05:10
Sodium 138 mmol/L (135-145) 11/25/23 05:35
Potassium 3.8 mmol/L (3.5-5.1) D 11/25/23 05:35
Chloride 104 mmol/L (98-107) 11/25/23 05:35
Carbon Dioxide 31 mmol/L (22-30) H 11/25/23 05:35
BUN 33 mg/dl (9-20) H 11/25/23 05:35
Creatinine 1.6 mg/dL (0.7-1.3) H 11/25/23 05:35
eGFR 44.65 11/25/23 05:35
Glucose 103 mg/dl (70-99) H 11/25/23 05:35
Calcium 8.4 mg/dl (8.4-10.2) 11/25/23 05:35
Albumin 4.1 g/dl (3.5-5.0) 11/23/23 16:33
Physical Exam
-
Vital Signs:
Vital Signs
Temp Pulse Resp BP Pulse Ox
97.8 F 50 18 143/75 98
11/25/23 12:02 11/25/23 12:02 11/25/23 12:02 11/25/23 12:02 11/25/23 12:02
Cardiovascular:: Regular rate and rhythm
Respiratory:: Bilateral: CTA
Lung Excursion:: Normal
Abdomen:: Nontender and Soft
Bowel Sounds:: Normal
Extremity Edema:: None: Bilateral:
--- NOTE | 2023-11-25 13:13 | W.DCSUMMARY ---
Discharge Summary
Discharge Data
Date of Admission: 11/23/23
Date of Discharge: 11/25/23
-
Pending Results: No
Hospital Course
Discharging Physician : Dr. Noni Rossi
Disposition : Home
Primary care physician : Dr. Kyle Sandoval
Principal Discharge diagnosis : Acute Kidney Injury, Hyperkalemia
Hospital Course :
Mr. Benton Yee is a 73 yo man with hx HLD, cholangiocarcinoma with liver and lung mets, DVT sent to the ER for outpatient labs showing hyperkalemia. Unclear etiology as patient doesn't report vomiting/diarrhea or poor appetite, he had a CT
with IV contrast one week prior. His lisinopril was stopped Tuesday and there has been some improvement in renal function. Upon arrival, vitals stable. Labs with K+ 5.6, Cr 2.0. He was admitted to medicine with Nephrology consulting. He was
given IV sodium bicarb. Labs improved with stable creatinine 1.6 prior to discharge. He was given Lokelma and hyperkalemia resolved. He is told to continue holding his lisinopril and will get repeat labs next week. Etiology may be secondary to
contrast-induced kidney injury in setting of using MAME-I.
Time spent on discharge was 32 minutes.
Important imaging findings :
Renal US 11/23/23
IMPRESSION: No evidence of renal collecting system dilatation or mass bilaterally.
Confirmation of bilateral ureteral jets.
Procedure findings :
Discharge Plan
-
Patient Disposition: Home (Routine Discharge)
Discharge Diagnosis/Procedures: hyperkalemia, acute kidney injury
Diet: Regular
Activity: As tolerated
Driving Restrictions: As prior to admission
Blood Work: BMP early next week (to monitor kidney function and potassium)
Referrals:
Kyle Sandoval MD [Family Provider] - in less than 1 week
Additional Discharge Medication Instructions: continue to hold Lisinopril
Prescriptions:
Continued
atorvastatin [Lipitor] 40 mg Tablet
40 mg PO HS
Eliquis 5 mg tablet
5 mg PO BID Qty: 60 0RF
benzonatate 200 mg capsule
200 mg PO QIDPRN PRN (Reason: cough)
omeprazole 20 mg capsule,delayed release(DR/EC)
20 mg PO DAILY
Discontinued
lisinopril 20 mg tablet
20 mg PO DAILY
Patient Comments:
11/23/2023: Stopped per oncology due to jus
Discharge Orders:
Discharge Patient (As Directed); Ordered 11/25/23
Ordered By: Noni Rossi
Discharge Date and Time
Print Language: ISRAELI
--- NOTE | 2023-11-25 16:07 | CM ---
MD entered order for discharge.
Spoke with pt . He said he has his car here and will drive him self home.
Offered VN he declined need.
PLAN Home no needs
== END 2023-11-25 13:28 | disposition home or self-care (01) | DRG 683 ==
LOC: 4 EAST ACU 18:58
PROVIDERS: Emergency Medicine; Physician Assistant Medical; ADMITTING PHYSICIAN Student in an Organized Health Care Education/Training Program; CONSULT PHYSICIAN Specialist; EMERGENCY PHYSICIAN Emergency Medicine; FAMILY PHYSICIAN Family Medicine
DX: N17.9 Acute kidney failure, unspecified (principal); C22.1 Intrahepatic bile duct carcinoma; E87.20 Acidosis, unspecified; C78.7 Secondary malignant neoplasm of liver and intrahepatic bile duct; C78.00 Secondary malignant neoplasm of unspecified lung; E87.5 Hyperkalemia; E78.00 Pure hypercholesterolemia, unspecified; K21.9 Gastro-esophageal reflux disease without esophagitis; Z11.52 Encounter for screening for COVID-19
CPT/HCPCS: 76770; 80048; 80053; 81003; 81015; 82570; 84132; 84133; 84300; 85025; 85027; 87811; 93005; 99285

== ENCOUNTER → 2023-11-29 07:08 | Outpatient (REF) | payer MEDICARE, OTHER, SELFPAY ==
[2023-11-29 09:05] LABS: Blood Urea Nitrogen 35 mg/dl (9-20); Calcium 9.7 mg/dl (8.4-10.2); Carbon Dioxide 27 mmol/L (22-30); Chloride 105 mmol/L (98-107); Glucose 106 mg/dl (70-99); Potassium 5.4 mmol/L (3.5-5.1); Sodium 136 mmol/L (135-145); eGFR 41.52
== END ==
LOC: REG 07:08
PROVIDERS: ATTENDING PHYSICIAN Student in an Organized Health Care Education/Training Program; FAMILY PHYSICIAN Family Medicine; REFERRING PHYSICIAN Internal Medicine
DX: N17.0 Acute kidney failure with tubular necrosis (principal)
CPT/HCPCS: 36415; 80048

== ENCOUNTER → 2023-12-01 08:19 | Outpatient (REF) | payer MEDICARE, OTHER, SELFPAY ==
[2023-12-01 10:43] LABS: Blood Urea Nitrogen 33 mg/dl (9-20); Calcium 9.7 mg/dl (8.4-10.2); Carbon Dioxide 22 mmol/L (22-30); Chloride 104 mmol/L (98-107); Glucose 100 mg/dl (70-99); Potassium 4.9 mmol/L (3.5-5.1); Sodium 136 mmol/L (135-145); eGFR 44.65
== END ==
LOC: REG 08:19
PROVIDERS: ATTENDING PHYSICIAN Family Medicine; REFERRING PHYSICIAN Internal Medicine
DX: E87.5 Hyperkalemia (principal)
CPT/HCPCS: 36415; 80048

== ENCOUNTER → 2023-12-07 06:25 | Outpatient (REF) | payer MEDICARE, OTHER, SELFPAY ==
[2023-12-07 07:57] LABS: Blood Urea Nitrogen 30 mg/dl (9-20); Calcium 9.6 mg/dl (8.4-10.2); Carbon Dioxide 22 mmol/L (22-30); Chloride 105 mmol/L (98-107); Glucose 96 mg/dl (70-99); Potassium 4.4 mmol/L (3.5-5.1); Sodium 136 mmol/L (135-145); eGFR 41.52
== END ==
LOC: REG 06:25
PROVIDERS: ATTENDING PHYSICIAN Family Medicine; REFERRING PHYSICIAN Internal Medicine
DX: E87.5 Hyperkalemia (principal)
CPT/HCPCS: 36415; 80048

== ENCOUNTER → 2023-12-14 06:25 | Outpatient (REF) | payer MEDICARE, OTHER, SELFPAY ==
[2023-12-14 09:01] LABS: Blood Urea Nitrogen 36 mg/dl (9-20); Calcium 9.5 mg/dl (8.4-10.2); Carbon Dioxide 19 mmol/L (22-30); Chloride 109 mmol/L (98-107); Glucose 100 mg/dl (70-99); Potassium 5.6 mmol/L (3.5-5.1); Sodium 142 mmol/L (135-145); eGFR 34.16
== END ==
LOC: REG 06:25
PROVIDERS: ATTENDING PHYSICIAN Family Medicine; REFERRING PHYSICIAN Internal Medicine
DX: E87.5 Hyperkalemia (principal)
CPT/HCPCS: 36415; 80048

== ENCOUNTER → 2023-12-30 09:01 | Outpatient (REF) | payer MEDICARE, OTHER, SELFPAY ==
[2023-12-30 10:13] LABS: % Basophils 0.3 % (0-2); % Eosinophils 1.4 % (0-6); % Immature Granulocytes 0.5 % (0-0.5); % Lymphocytes 11.1 % (20.5-51.1); % Monocytes 9.7 % (1.7-9.3); Absolute Eosinophils 0.2 10^3/uL (0-0.7); Absolute Immature Granulocytes 0.1 10^3/uL (0-0.05); Absolute Lymphocytes 1.5 10^3/uL (1.2-3.4); Absolute Monocytes 1.3 10^3/uL (0.1-0.6); Absolute Neutrophils 10.3 10^3/uL (1.4-6.5); Hematocrit 35.4 % (39.0-52.0); Hemoglobin 12.5 g/dL (13.0-18.0); Mean Corp Hgb Conc. 35.3 g/dL (33.0-37.0); Mean Corpuscular Hgb 33.8 pg (27.0-31.0); Mean Corpuscular Volume 95.7 fL (80.0-94.0); Mean Platelet Volume 9.1 fL (7.4-10.4); Nucleated Red Blood Cells % 0 % (-); Platelet Count 227 10^3/uL (130-400); Red Cell Dist. Width 15.2 % (11.5-14.5); White Blood Cell Count 13.4 10^3/uL (4.8-10.8)
[2023-12-30 10:45] LABS: Urine Albumin Negative (Neg - Trace); Urine Bilirubin Negative (Negative); Urine Character Clear (Clear); Urine Color Yellow; Urine Glucose Negative (Negative); Urine Ketone Negative (Negative); Urine Leukocyte Negative (Negative); Urine Nitrite Negative (Negative); Urine Occult Blood 1+ (Negative); Urine Specific Gravity 1.015 (<1.030); Urine Urobilinogen Negative (Neg - 1+)
[2023-12-30 11:06] LABS: Urine Bacteria Few (Negative); Urine Squamous Cell 0-2 /LPF (Few); Urine White Cell 0-2 /HPF (0-5)
[2023-12-30 11:38] LABS: Blood Urea Nitrogen 38 mg/dl (9-20); Calcium 9.5 mg/dl (8.4-10.2); Carbon Dioxide 15 mmol/L (22-30); Chloride 109 mmol/L (98-107); Glucose 84 mg/dl (70-99); Potassium 3.6 mmol/L (3.5-5.1); Sodium 142 mmol/L (135-145); eGFR 44.65
[2023-12-30 11:53] LABS: Protein/creatinine Ratio 0.2; Urine Protein 14 mg/dl
== END ==
LOC: REG 09:01
PROVIDERS: ATTENDING PHYSICIAN Student in an Organized Health Care Education/Training Program
DX: N17.9 Acute kidney failure, unspecified (principal); I10 Essential (primary) hypertension
CPT/HCPCS: 36415; 80048; 81003; 81015; 82570; 84156; 85025

== ENCOUNTER → 2024-01-13 07:28 | Outpatient (REF) | payer MEDICARE, OTHER, SELFPAY ==
[2024-01-13 08:04] LABS: % Basophils 0.4 % (0-2); % Immature Granulocytes 0.4 % (0-0.5); % Lymphocytes 13.8 % (20.5-51.1); % Monocytes 9.5 % (1.7-9.3); % Neutrophils 73.9 % (42.2-75.2); Absolute Eosinophils 0.2 10^3/uL (0-0.7); Absolute Immature Granulocytes 0.1 10^3/uL (0-0.05); Absolute Lymphocytes 1.5 10^3/uL (1.2-3.4); Absolute Monocytes 1.1 10^3/uL (0.1-0.6); Absolute Neutrophils 8.2 10^3/uL (1.4-6.5); Hematocrit 36.4 % (39.0-52.0); Hemoglobin 12.8 g/dL (13.0-18.0); Mean Corp Hgb Conc. 35.2 g/dL (33.0-37.0); Mean Corpuscular Hgb 34.5 pg (27.0-31.0); Mean Corpuscular Volume 98.1 fL (80.0-94.0); Mean Platelet Volume 9.1 fL (7.4-10.4); Nucleated Red Blood Cells % 0 % (-); Platelet Count 169 10^3/uL (130-400); Red Blood Cell Count 3.71 10^6/uL (4.70-6.10); Red Cell Dist. Width 15.1 % (11.5-14.5); White Blood Cell Count 11.1 10^3/uL (4.8-10.8)
[2024-01-13 08:26] LABS: Urine Albumin Negative (Neg - Trace); Urine Bilirubin Negative (Negative); Urine Character Clear (Clear); Urine Color Yellow; Urine Glucose Negative (Negative); Urine Ketone Negative (Negative); Urine Leukocyte Negative (Negative); Urine Nitrite Negative (Negative); Urine Occult Blood 1+ (Negative); Urine Specific Gravity 1.015 (<1.030); Urine Urobilinogen Negative (Neg - 1+)
[2024-01-13 08:35] LABS: Urine White Cell 0-2 /HPF (0-5)
[2024-01-13 08:49] LABS: Blood Urea Nitrogen 29 mg/dl (9-20); Carbon Dioxide 23 mmol/L (22-30); Chloride 106 mmol/L (98-107); Glucose 99 mg/dl (70-99); Potassium 4.2 mmol/L (3.5-5.1); Sodium 140 mmol/L (135-145); eGFR 57.29
[2024-01-13 09:04] LABS: Protein/creatinine Ratio 0.1; Urine Protein 11 mg/dl
[2024-01-13 09:08] LABS: Microalbumin, Random Urine <0.6 mg/dl (0.6-1.7)
== END ==
LOC: REG 07:28
PROVIDERS: FAMILY PHYSICIAN Family Medicine
DX: N17.9 Acute kidney failure, unspecified (principal); I10 Essential (primary) hypertension
CPT/HCPCS: 36415; 80048; 81003; 81015; 82043; 82570; 84156; 85025

== ENCOUNTER → 2024-01-26 06:41 | Outpatient (REF) | payer MEDICARE, OTHER, SELFPAY ==
[2024-01-26 07:32] LABS: % Basophils 0.3 % (0-2); % Eosinophils 1.7 % (0-6); % Immature Granulocytes 0.7 % (0-0.5); % Lymphocytes 12.7 % (20.5-51.1); % Monocytes 10.4 % (1.7-9.3); % Neutrophils 74.2 % (42.2-75.2); Absolute Eosinophils 0.2 10^3/uL (0-0.7); Absolute Immature Granulocytes 0.1 10^3/uL (0-0.05); Absolute Lymphocytes 1.2 10^3/uL (1.2-3.4); Absolute Neutrophils 7.2 10^3/uL (1.4-6.5); Hematocrit 37.4 % (39.0-52.0); Hemoglobin 12.8 g/dL (13.0-18.0); Mean Corp Hgb Conc. 34.2 g/dL (33.0-37.0); Mean Corpuscular Hgb 33.1 pg (27.0-31.0); Mean Corpuscular Volume 96.6 fL (80.0-94.0); Mean Platelet Volume 9.1 fL (7.4-10.4); Nucleated Red Blood Cells % 0 % (-); Platelet Count 202 10^3/uL (130-400); Red Blood Cell Count 3.87 10^6/uL (4.70-6.10); Red Cell Dist. Width 14.4 % (11.5-14.5); White Blood Cell Count 9.7 10^3/uL (4.8-10.8)
[2024-01-26 07:54] LABS: Blood Urea Nitrogen 27 mg/dl (9-20); Calcium 9.3 mg/dl (8.4-10.2); Carbon Dioxide 23 mmol/L (22-30); Chloride 104 mmol/L (98-107); Glucose 89 mg/dl (70-99); Sodium 140 mmol/L (135-145); eGFR > 60.00
[2024-01-26 08:12] LABS: Urine Albumin Negative (Neg - Trace); Urine Bilirubin Negative (Negative); Urine Glucose Negative (Negative); Urine Ketone Negative (Negative); Urine Leukocyte Negative (Negative); Urine Nitrite Negative (Negative); Urine Occult Blood 1+ (Negative); Urine Urobilinogen Negative (Neg - 1+)
[2024-01-26 08:13] LABS: Urine Character Clear (Clear); Urine Color Yellow
[2024-01-26 08:15] LABS: Urine Amorphous Seen; Urine Squamous Cell 0-2 /LPF (Few); Urine White Cell 0-2 /HPF (0-5)
[2024-01-26 08:44] LABS: Protein/creatinine Ratio 0.2; Urine Protein 10 mg/dl
[2024-01-26 08:54] LABS: Microalbumin, Random Urine <0.6 mg/dl (0.6-1.7)
== END ==
LOC: REG 06:41
PROVIDERS: FAMILY PHYSICIAN Family Medicine
DX: N17.9 Acute kidney failure, unspecified (principal)
CPT/HCPCS: 36415; 80048; 81003; 81015; 82043; 82570; 84156; 85025

== ENCOUNTER → 2024-02-17 06:45 | Outpatient (REF) | payer MEDICARE, OTHER, SELFPAY ==
[2024-02-17 07:52] LABS: % Basophils 0.3 % (0-2); % Eosinophils 1.4 % (0-6); % Immature Granulocytes 0.6 % (0-0.5); % Lymphocytes 14.7 % (20.5-51.1); % Monocytes 3.5 % (1.7-9.3); % Neutrophils 79.5 % (42.2-75.2); Absolute Eosinophils 0.1 10^3/uL (0-0.7); Absolute Immature Granulocytes 0.1 10^3/uL (0-0.05); Absolute Lymphocytes 1.3 10^3/uL (1.2-3.4); Absolute Monocytes 0.3 10^3/uL (0.1-0.6); Absolute Neutrophils 7.2 10^3/uL (1.4-6.5); Hematocrit 40.3 % (39.0-52.0); Hemoglobin 13.9 g/dL (13.0-18.0); Mean Corp Hgb Conc. 34.5 g/dL (33.0-37.0); Mean Corpuscular Hgb 32.5 pg (27.0-31.0); Mean Corpuscular Volume 94.2 fL (80.0-94.0); Mean Platelet Volume 9.3 fL (7.4-10.4); Nucleated Red Blood Cells % 0 % (-); Platelet Count 191 10^3/uL (130-400); Red Blood Cell Count 4.28 10^6/uL (4.70-6.10); Red Cell Dist. Width 13.1 % (11.5-14.5); White Blood Cell Count 9.1 10^3/uL (4.8-10.8)
[2024-02-17 08:19] LABS: Blood Urea Nitrogen 28 mg/dl (9-20); Calcium 9.4 mg/dl (8.4-10.2); Carbon Dioxide 25 mmol/L (22-30); Chloride 103 mmol/L (98-107); Glucose 104 mg/dl (70-99); Potassium 4.8 mmol/L (3.5-5.1); Sodium 139 mmol/L (135-145); eGFR 57.29
[2024-02-17 09:07] LABS: Urine Albumin Negative (Neg - Trace); Urine Bilirubin Negative (Negative); Urine Character Clear (Clear); Urine Color Yellow; Urine Glucose Negative (Negative); Urine Ketone Negative (Negative); Urine Leukocyte Negative (Negative); Urine Nitrite Negative (Negative); Urine Occult Blood Trace (Negative); Urine Specific Gravity 1.015 (<1.030); Urine Urobilinogen Negative (Neg - 1+)
[2024-02-17 09:46] LABS: Urine Amorphous Seen; Urine Squamous Cell 0-2 /LPF (Few)
[2024-02-17 09:47] LABS: Urine White Cell 0-2 /HPF (0-5)
[2024-02-17 09:49] LABS: Protein/creatinine Ratio 0.1; Urine Protein 9 mg/dl
[2024-02-17 09:54] LABS: Microalbumin, Random Urine 1.2 mg/dl (0.6-1.7); Microalbumin/creatinine Ratio 13.8 mg/g
== END ==
LOC: REG 06:45
PROVIDERS: ATTENDING PHYSICIAN Nurse Practitioner Family; FAMILY PHYSICIAN Family Medicine
DX: N17.9 Acute kidney failure, unspecified (principal); I10 Essential (primary) hypertension
CPT/HCPCS: 36415; 80048; 81003; 81015; 82043; 82570; 84156; 85025